=== PATIENT | female | born 1995 | race African-American/Black ===

== ENCOUNTER 2019-10-04 13:00 | Emergency (ER) | payer OTHER ==
[~2019-10-04] VITALS: Ht 152.4 cm; Wt 49.0 kg
[2019-10-04] MEDS ORDERED: SODIUM CHLORIDE 0.9% 1,000 ML IV ONE (13:33)
[2019-10-04 14:26] LABS: BASOPHILS % 0.8 % (0.0-2.0); CHLORIDE 107 mEq/L (98-107); EOSINOPHILS % 0.7 % (0.0-5.0); HEMATOCRIT. 39.7 % (36.0-48.0); HEMOGLOBIN. 13.2 g/dL (12.0-16.0); LYMPHOCYTES % 30.9 % (20.0-50.0); MEAN CORPUSCULAR HEMOGLOBIN 27.1 pg (28.0-32.0); MONOCYTES % 8.4 % (2.0-8.0); NEUTROPHILS % 59.2 % (40.0-76.0); PLATELET 253 x1000/uL (130-400); RED BLOOD CELL COUNT 4.89 mill/uL (4.2-5.4); RED CELL DISTRIBUTION WIDTH 13.6 % (11.6-14.6)
[2019-10-04 14:29] LABS: HCG SCREEN NEGATIVE
[2019-10-04 14:34] LABS: CLARITY URINE CLEAR (CLEAR); COLOR URINE YELLOW (YELLOW); KETONES URINE NEGATIVE (NEGATIVE); LEUKOCYTE ESTERASE URINE NEGATIVE (NEGATIVE); NITRITE URINE NEGATIVE (NEGATIVE); OCCULT BLOOD URINE NEGATIVE (NEGATIVE); PROTEIN URINE NEGATIVE (NEGATIVE); SPECIFIC GRAVITY URINE 1.001 (1.005-1.030); UROBILINOGEN URINE 0.2 E.U./dL (0.2-1.0)
[2019-10-04 14:56] VITALS: BP 102/67
== END 2019-10-04 15:00 | disposition home or self-care (01) ==
LOC: ER 13:00
DX: R53.1 Weakness (principal); R55 Syncope and collapse; R42 Dizziness and giddiness; Z88.2 Allergy status to sulfonamides
CPT/HCPCS: 36415; 80053; 81003; 81025; 82962; 84484; 84703; 85025; 93005; 99284; J7030

== ENCOUNTER 2020-04-18 11:36 | Emergency (ER) | payer OTHER ==
[~2020-04-18] VITALS: Ht 152.4 cm; Wt 49.8 kg
[2020-04-18 11:44] VITALS: BP 121/86
== END 2020-04-18 13:04 | disposition home or self-care (01) ==
LOC: ER 11:36
DX: R68.2 Dry mouth, unspecified (principal); Z88.2 Allergy status to sulfonamides
CPT/HCPCS: 82962; 99281

== ENCOUNTER 2020-04-21 01:57 | Emergency (ER) | payer OTHER ==
[~2020-04-21] VITALS: Ht 152.4 cm; Wt 50.0 kg
[2020-04-21 01:59] VITALS: BP 108/74
[2020-04-21] MEDS ORDERED: METHYLPREDNISOLONE SOD SUCC 125 MG/2 ML VIAL IM ONE (02:30)
[2020-04-21] MEDS ORDERED: DIPHENHYDRAMINE 50MG/ML VIAL IM ONE (02:30)
== END 2020-04-21 03:14 | disposition home or self-care (01) ==
LOC: ER 01:57
DX: T78.40XA Allergy, unspecified, initial encounter (principal); L53.8 Other specified erythematous conditions; Z88.2 Allergy status to sulfonamides; X58.XXXA Exposure to other specified factors, initial encounter
CPT/HCPCS: 96372; 99284; J1200; J2930

== ENCOUNTER 2020-10-03 14:11 | Emergency (ER) | payer OTHER ==
[~2020-10-03] VITALS: Ht 152.4 cm; Wt 52.0 kg
[2020-10-03 14:23] VITALS: BP 104/77
== END 2020-10-03 20:35 | disposition left against medical advice (07) ==
LOC: ER 14:11
DX: Z53.21 Procedure and treatment not carried out due to patient leaving prior to being seen by health care provider (principal)